=== PATIENT | female | born 1980 | race Caucasian/White ===

== ENCOUNTER 2021-06-03 14:50 | Outpatient (CLI) | payer SELFPAY ==
[2021-06-03 17:43] LABS: Hematocrit 37.4 % (37-47); Hemoglobin 12.1 g/dL (12.0-15.0)
[2021-06-03 18:22] LABS: ALB/GLOB Ratio 1.2 RATIO (0.9-2.4); AST(SGOT) 18 U/L (15-37); Alanine Aminotransfer ALT/SGPT 26 U/L (13-56); Albumin, Serum 4.3 g/dL (3.2-5.0); Alkaline Phosphatase 57 U/L (45-117); Anion Gap 6 (5-15); BUN 14 mg/dL (7-18); BUN/Creat Ratio 16.9 RATIO (10-20); CRP < 2.90 mg/L (0.0-3.0); Chloride 107 mmol/L (98-107); Creatinine, Serum 0.83 mg/dL (0.55-1.02); EST Glomerular Filtration Rate 80 mL/min (>60); Est Glom Filt Rate - Afr Amer 97 mL/min (>60); Globulin 3.7 g/dL (2.2-4.2); Glucose 89 mg/dL (74-106); Potassium 3.8 mmol/L (3.5-5.1); Sodium Level 140 mmol/L (136-145); T4 Total, Thyroxin 7.4 ug/dL (4.8-13.9); Thyroid Stim Hormone (TSH) 1.05 uIU/mL (0.358-3.74)
[2021-06-05 17:07] LABS: Endomysial Antibody IgA Negative (Negative)
[2021-06-05 17:28] LABS: Immunoglobulin A 193 mg/dL (87-352); t-Transglutaminase IgA <2 U/mL (0-3)
== END 2021-06-03 23:59 | disposition home or self-care (01) ==
PROVIDERS: Referring Provider Internal Medicine Gastroenterology; Visit Provider Internal Medicine Gastroenterology
DX: R19.7 Diarrhea, unspecified (principal)
CPT/HCPCS: 36415; 80053; 82784; 83516; 84436; 84443; 85014; 85018; 86140; 86255

== ENCOUNTER 2024-07-12 07:04 | Outpatient (CLI) | payer SELFPAY, OTHER ==
--- NOTE | 2024-07-12 07:06 | CT_ITS ---
PROCEDURE: LIMITED CHEST CT CARDIAC ONLY REASON FOR EXAM: SOB Family history of coronary artery disease. TECHNIQUE: Supine chest CT without contrast, high resolution CT (HRCT) protocol. One or more dose reduction techniques were used (e.g., Automated exposure control, adjustment of the mA and/or kV according to patient size, use of iterative reconstruction technique). COMPARISON: None FINDINGS: Hardware: None Lymph nodes: Small benign-appearing mediastinal lymph nodes. Heart and Vasculature: Normal heart size. No pericardial effusion. Coronary Artery Calcifications: Absent Lungs and Airways: The lungs are normally expanded and clear. No septal thickening nodules or abnormal pulmonary opacities. Pleura: Unremarkable Upper Abdomen: Unremarkable Bones: Unremarkable CT/Limited Chest CT Cardiac Only IMPRESSION: Coronary artery calcification (CAC) is is absent Reading Location: [place] [id number]
--- NOTE | 2024-07-12 07:06 | ECHOD_ITS ---
Reason For Study Reason For Study: SOB, PALPITATIONS Procedure This was a 2D Doppler, Color Flow transthoracic echocardiogram. Exam performed in department. Left Ventricle Normal LV size. Left ventricular systolic function is normal. The left ventricular ejection fraction is 60 %. Normal diastology for age. No regional wall motion abnormalities noted. Right Ventricle Normal RV size. Normal systolic function. Atria Normal left atrium. Normal right atrium. Mitral Valve Normal mitral valve. Tricuspid Valve Normal tricuspid valve. Mild tricuspid valve insufficiency. Pulmonary artery systolic pressure is 24 mmHg. Aortic Valve Normal aortic valve. Trisinus/trileaflet aortic valve. Pulmonic Valve Normal pulmonic valve. Great Vessels Normal aortic root. The pulmonary artery is normal size. Normal inferior vena cava. Pericardium/Pleural No pericardial effusion. MMode/2D Measurements & Calculations LVIDd: 4.6 cm IVSd: 0.93 cm Ao root diam: 2.7 cm LVIDs: 2.9 cm LVPWd: 0.93 cm RVDd: 3.4 cm FS: 37.3 % LAV(MOD-bp): 54.8 ml LVAd ap4: 27.3 cm2 SV(MOD-sp4): 50.5 ml LAV(MOD-bp) Indexed: 32.8 ml/m2 LVLd ap4: 6.9 cm SI(MOD-sp4): 30.3 ml/m2 LAV(MOD-sp2): 49.3 ml EDV(MOD-sp4): 87.2 ml LAV(MOD-sp4): 43.6 ml EDV(sp4-el): 91.5 ml LVAs ap4: 15.7 cm2 LVLs ap4: 5.7 cm ESV(MOD-sp4): 36.7 ml ESV(sp4-el): 36.6 ml EF(MOD-sp4): 57.9 % EF(sp4-el): 60.0 % SV(sp4-el): 54.9 ml LA A4 area: 15.1 cm2 LA dimension(2D): 3.4 cm RA A4 area: 15.6 cm2 TAPSE: 2.8 cm Time Measurements MV dec time: 0.21 sec Doppler Measurements & Calculations MV E max nirmal: 92.7 cm/sec Lat Peak E' Nirmal: 13.4 cm/sec Med Peak E' Nirmal: 14.2 cm/sec MV A max nirmal: 79.0 cm/sec E/E' lat: 6.9 E/E' med: 6.5 MV E/A: 1.2 MV V2 max: 101.8 cm/sec MV P1/2t max nirmal: 100.1 cm/sec Ao V2 max: 155.6 cm/sec MV max P.1 mmHg MV P1/2t: 65.7 msec Ao max P.7 mmHg MV V2 mean: 46.9 cm/sec Ao V2 mean: 107.8 cm/sec MV mean P.2 mmHg MV dec slope: 446.3 cm/sec2 Ao mean P.3 mmHg MV V2 VTI: 31.1 cm MVA(P1/2t): 3.3 cm2 Ao V2 VTI: 35.6 cm AV (velocity ratio): 0.81 LV V1 max: 129.8 cm/sec PA V2 max: 124.6 cm/sec PI end-d nirmal: 95.4 cm/sec LV V1 max P.7 mmHg PA V2 mean: 91.0 cm/sec LV V1 mean P.7 mmHg LV V1 mean: 89.8 cm/sec LV V1 VTI: 28.8 cm TR max nirmal: 223.4 cm/sec TR max P.0 mmHg ECHO/Echo Complete Interpretation Summary Normal LV size. Left ventricular systolic function is normal. The left ventricular ejection fraction is 60 %. Structurally normal valves. Ordering Physician: Summer Isbell Referring Physician: Summer Isbell Performed By: Priyank, Miley, RDCS, RVT
--- NOTE | 2024-07-12 07:25 | EKG12_ITS ---
Test Reason : ROUTINE Blood Pressure : */* mmHG Vent. Rate : 58 BPM Atrial Rate : 58 BPM P-R Int : 156 ms QRS Dur : 78 ms QT Int : 414 ms P-R-T Axes : 47 60 56 degrees QTcB Int : 406 ms Sinus bradycardia Otherwise normal ECG Confirmed by YANA ROBERTSON, MCKINLEY ([id number]), technical editor ALISTAIR IYER ([id number]) on 07/13/2024 9:48:14 AM Referred By: Summer Isbell Confirmed By: MCKINLEY MILLAN MD
--- NOTE | 2024-07-12 14:43 | CA.SCORE ---
Calcium Scoring Date of Study:: 07/12/24 Indications Indications: Chest pain shortness of breath Coronary Calcium Scoring: High-resolution Computed Tomographic imaging of the chest was performed on [07/12/2024], with particular attention paid to the coronary arteries. Images from the examination were analyzed for the presence and extent of coronary artery calcification , using coronary calcium quantification software. The patient tolerated the procedure well and there were no complications. The results of the coronary calcification analysis are provided below. Findings Coronary Artery Left Main (LM): 0 Left Anterior Descending (LAD): 0 Left Circumflex (LCX): 0 Right Coronary Artery (RCA): 0 Total Agatston Score: 0 Percentile Rankinth percentile Calcium Scoring Interpretation: Different methods to categorize the overall amount of coronary plaque. Overall amount CAC SIS Visual of coronary plaque P1 Mild -100 <2 1-2 vessels with mild amount of plaque P2 Moderate 101-300 3-4 1-2 vessels with moderate amount, 3 vessels with mild amount of plaque P3 Severe 301-999 5-7 3 vessels with moderate amount, 1 vessel with severe amount of plaque P4 Extensive >1000 >8 2-3 vessels with severe amount of plaque Conclusion: No atherosclerotic plaquing noted.
== END 2024-07-12 23:59 | disposition home or self-care (01) ==
PROVIDERS: PCP Nurse Practitioner Family; Referring Provider Nurse Practitioner Family; Visit Provider Nurse Practitioner Family
DX: R06.02 Shortness of breath (principal); R00.2 Palpitations; R00.1 Bradycardia, unspecified; I25.10 Atherosclerotic heart disease of native coronary artery without angina pectoris
CPT/HCPCS: 75571; 76380; 93005; 93306